=== PATIENT | male | born 1950 | race Caucasian/White ===

== ENCOUNTER 2017-07-27 11:41 | Inpatient (IN) | payer MEDICARE ==
[2017-07-27] MEDS ORDERED: DILTIAZEM 125 MG in SODIUM CHLORIDE 0.9% 100 ML IV STA (12:12)
[2017-07-27] MEDS ORDERED: SODIUM CHLORIDE 0.9% 1,000 ML IV STA (12:12)
[2017-07-27] MEDS ORDERED: ASPIRIN 81 MG PO STA (12:12)
[2017-07-27 12:27] LABS: Basophils % (A) 1 %; Eosinophils # (A) 0.2 k/uL (0-0.7); Eosinophils % (A) 2 %; HCT 45.7 % (39.0-53.0); HGB 15.1 gm/dL (13.0-17.5); Lymphocytes # (A) 1.5 k/uL (1.0-4.8); Lymphocytes % (A) 26 %; MCH 31.7 pg (25.0-35.0); MCV 96.1 fL (80.0-100.0); Mean Platelet Volume 7.6; Monocytes # (A) 0.5 k/uL (0-1.0); Monocytes % (A) 8 %; Neutrophils # (A) 3.6 k/uL (1.3-7.7); Neutrophils % (A) 60 %; Platelet Count 227 k/uL (150-450); RBC 4.76 m/uL (4.30-5.90); RDW 14.1 % (11.5-15.5)
[2017-07-27 12:41] LABS: ALT 39 U/L (21-72); AST 33 U/L (17-59); Albumin 4.1 g/dL (3.5-5.0); Alkaline Phosphatase 57 U/L (38-126); Anion Gap 9 mmol/L; Blood Urea Nitrogen 27 mg/dL (9-20); Calcium 9.5 mg/dL (8.4-10.2); Carbon Dioxide 25 mmol/L (22-30); Chloride 105 mmol/L (98-107); Glucose 114 mg/dL (74-99); Magnesium 2.1 mg/dL (1.6-2.3); Potassium 5.1 mmol/L (3.5-5.1); Sodium 139 mmol/L (137-145); Total Bilirubin 1.4 mg/dL (0.2-1.3)
[2017-07-27 12:48] LABS: Creatine Kinase 179 U/L (55-170)
[2017-07-27 13:01] LABS: Creatine Kinase MB 1.6 ng/mL (0.0-2.4); Troponin I <0.012 ng/mL (0.000-0.034)
--- NOTE | 2017-07-27 13:01 | XR ---
EXAMINATION TYPE: XR chest 1V portable DATE OF EXAM: 07/27/2017 COMPARISON: NONE HISTORY: Dysrhythmia TECHNIQUE: Single frontal view of the chest is obtained. FINDINGS: There is no focal air space opacity, pleural effusion, or pneumothorax seen. The cardiac silhouette size is within normal limits. The osseous structures are intact. Degenerative change of the spine. Shoulders. No overt failure. Atherosclerotic change aorta. IMPRESSION: No acute process.
[2017-07-27 13:17] LABS: Partial Thromboplastin Time 24.6 sec (22.0-30.0); Prothrombin Time 10.3 sec (9.0-12.0)
[2017-07-27] MEDS ORDERED: HEPARIN SODIUM,PORCINE 5,000 UNIT/ML 1 ML VIAL IV PRN (13:49)
[2017-07-27] MEDS ORDERED: HEPARIN SODIUM,PORCINE 5,000 UNIT/ML 1 ML VIAL IV ONE (13:49)
--- NOTE | 2017-07-27 13:53 | ED ---
Arrhythmia/Palpitations HPI - General Chief Complaint: Arrhythmia/Palpitations Stated Complaint: Abnormal EKG-sent by Time Seen by Provider: 07/27/17 12:12 Source: patient Mode of arrival: ambulatory Limitations: no limitations - History of Present Illness Initial Comments: This 67-year-old white male presents with an elevated heart rate. He apparently went to see his primary care physician for an infection in his right index finger. They noted that his heart rate was significantly elevated at approximately 160 and sent him to the ER for further evaluation. He states that he has been feeling fine otherwise. He does not have any palpitations, shortness of breath, or chest pain. He denies any previous history of cardiac arrhythmias. He's never had any known problems with his heart, coronary artery disease or myocardial infarction. No other complaints or modifying factors. - Related Data Home Medications Medication Instructions Recorded Confirmed Multivitamins, Thera [Multivitamin] 1 tab PO DAILY 03/14/16 07/27/17 Cholecalciferol [Vitamin D3] 1,000 unit PO DAILY 07/27/17 07/27/17 Lisinopril [Zestril] 20 mg PO DAILY 07/27/17 07/27/17 Allergies Allergy/AdvReac Type Severity Reaction Status Date / Time No Known Allergies Allergy Verified 07/27/17 11:49 Review of Systems ROS Statement: Those systems with pertinent positive or pertinent negative responses have been documented in the HPI. ROS Other: All systems not noted in ROS Statement are negative. Past Medical History Past Medical History: Hypertension, Skin Disorder, Sleep Apnea/CPAP/BIPAP Additional Past Medical History / Comment(s): no cpap used, rosacea, low vit d History of Any Multi-Drug Resistant Organisms: None Reported Additional Past Surgical History / Comment(s): pilonidal cyst, Past Anesthesia/Blood Transfusion Reactions: No Reported Reaction Past Psychological History: No Psychological Hx Reported Smoking Status: Current some day smoker Past Alcohol Use History: None Reported - Past Family History Mother Family Medical History: Cancer General Exam - General Exam Comments Initial Comments: GENERAL: The patient is well nourished and well hydrated. VITAL SIGNS: Heart rate, blood pressure, respiratory rate reviewed as recorded in nurse's notes. EYES: Pupils are round and reactive. Extraocular movements are intact. No conjunctival / lid redness or swelling. ENT: No external evidence of injury, swelling, or ecchymosis. Airway is patent. Throat is clear. NECK: Nontender. No swelling or evidence of injury. No subcutaneous emphysema. Trachea is midline. No thyroid mass. HEART: There is tachycardia noted which is fairly regular. Good peripheral pulses. LUNGS/CHEST: Breath sounds clear and equal bilaterally. No rales, rhonchi, or wheezes. No ecchymosis, subcutaneous emphysema, or tenderness. ABDOMEN: Abdomen soft without tenderness. No palpable masses or organomegaly. No peritoneal signs. No abdominal wall swelling or ecchymosis. EXTREMITIES: No extremity tenderness. Normal muscle tone and function. No thoracolumbar tenderness. The patient does have a finger splint noted to his right index finger. NEUROLOGIC: Sensation is grossly intact. Cranial nerve exam reveals face is symmetrical, tongue is midline, speech is clear. SKIN: No abrasions or ecchymosis is noted. No induration or masses noted. There is a mildly edema this rash to bilateral lower extremities which is chronic in nature. PSYCHIATRIC: Alert and oriented. Appropriate behavior and judgment. Limitations: no limitations Course Vital Signs 07/27/17 07/27/17 07/27/17 11:44 12:12 12:56 Temperature 97.3 F L Pulse Rate 162 H 135 H Pulse Rate [ 156 H Campaign Coordinator ] Respiratory 18 20 Rate Blood Pressure 136/77 135/82 O2 Sat by Pulse 100 99 Oximetry 07/27/17 13:47 Temperature Pulse Rate 140 H Pulse Rate [ Campaign Coordinator ] Respiratory 20 Rate Blood Pressure 131/73 O2 Sat by Pulse 98 Oximetry Medical Decision Making - Medical Decision Making The patient was seen and examined. All diagnostics were reviewed. The EKG shows evidence of atrial flutter at a rate of 160. There is some nonspecific ST -T wave changes noted in the inferolateral leads. The patient has an incomplete right bundle-branch block. The CT interval is 112, QRS duration is 104, and the QTc interval is 382. He is started on a Cardizem drip and his heart rate comes down to approximately 140 at 10 mg per hour. He also is given a 10 mg Cardizem bolus. He later started on some heparin. We'll watch him on the glassware finisher it appears that he sometimes will go into a 3-1 atrial flutter. The laboratory is reviewed and is unremarkable. It is felt as though he benefit from admission to the hospital for further treatment and cardiology consult. Case will be discussed with internal medicine in the near future. - Lab Data Result diagrams: 07/27/17 12:09 07/27/17 12:09 Lab Results 07/27/17 07/27/17 07/27/17 Range/Units 12:09 12:09 12:09 WBC 6.0 (3.8-10.6) k/uL RBC 4.76 (4.30-5.90) m/uL Hgb 15.1 (13.0-17.5) gm/dL Hct 45.7 (39.0-53.0) % MCV 96.1 (80.0-100.0) fL MCH 31.7 (25.0-35.0) pg MCHC 33.0 (31.0-37.0) g/dL RDW 14.1 (11.5-15.5) % Plt Count 227 (150-450) k/uL Neutrophils % 60 % Lymphocytes % 26 % Monocytes % 8 % Eosinophils % 2 % Basophils % 1 % Neutrophils # 3.6 (1.3-7.7) k/uL Lymphocytes # 1.5 (1.0-4.8) k/uL Monocytes # 0.5 (0-1.0) k/uL Eosinophils # 0.2 (0-0.7) k/uL Basophils # 0.0 (0-0.2) k/uL PT (9.0-12.0) sec INR (<1.2) APTT (22.0-30.0) sec Sodium 139 (137-145) mmol/L Potassium 5.1 (3.5-5.1) mmol/L Chloride 105 (98-107) mmol/L Carbon Dioxide 25 (22-30) mmol/L Anion Gap 9 mmol/L BUN 27 H (9-20) mg/dL Creatinine 1.02 (0.66-1.25) mg/dL Est GFR (MDRD) Af Amer >60 (>60 ml/min/1.73 sqM) Est GFR (MDRD) Non-Af >60 (>60 ml/min/1.73 sqM) Glucose 114 H (74-99) mg/dL Calcium 9.5 (8.4-10.2) mg/dL Magnesium 2.1 (1.6-2.3) mg/dL Total Bilirubin 1.4 H (0.2-1.3) mg/dL AST 33 (17-59) U/L ALT 39 (21-72) U/L Alkaline Phosphatase 57 (38-126) U/L Total Creatine Kinase 179 H (55-170) U/L CK-MB (CK-2) 1.6 (0.0-2.4) ng/mL CK-MB (CK-2) Rel Index 0.9 Troponin I <0.012 (0.000-0.034) ng/mL Total Protein 7.0 (6.3-8.2) g/dL Albumin 4.1 (3.5-5.0) g/dL TSH 1.520 (0.465-4.680) mIU/L 07/27/17 Range/Units 12:09 WBC (3.8-10.6) k/uL RBC (4.30-5.90) m/uL Hgb (13.0-17.5) gm/dL Hct (39.0-53.0) % MCV (80.0-100.0) fL MCH (25.0-35.0) pg MCHC (31.0-37.0) g/dL RDW (11.5-15.5) % Plt Count (150-450) k/uL Neutrophils % % Lymphocytes % % Monocytes % % Eosinophils % % Basophils % % Neutrophils # (1.3-7.7) k/uL Lymphocytes # (1.0-4.8) k/uL Monocytes # (0-1.0) k/uL Eosinophils # (0-0.7) k/uL Basophils # (0-0.2) k/uL PT 10.3 (9.0-12.0) sec INR 1.0 (<1.2) APTT 24.6 (22.0-30.0) sec Sodium (137-145) mmol/L Potassium (3.5-5.1) mmol/L Chloride (98-107) mmol/L Carbon Dioxide (22-30) mmol/L Anion Gap mmol/L BUN (9-20) mg/dL Creatinine (0.66-1.25) mg/dL Est GFR (MDRD) Af Amer (>60 ml/min/1.73 sqM) Est GFR (MDRD) Non-Af (>60 ml/min/1.73 sqM) Glucose (74-99) mg/dL Calcium (8.4-10.2) mg/dL Magnesium (1.6-2.3) mg/dL Total Bilirubin (0.2-1.3) mg/dL AST (17-59) U/L ALT (21-72) U/L Alkaline Phosphatase (38-126) U/L Total Creatine Kinase (55-170) U/L CK-MB (CK-2) (0.0-2.4) ng/mL CK-MB (CK-2) Rel Index Troponin I (0.000-0.034) ng/mL Total Protein (6.3-8.2) g/dL Albumin (3.5-5.0) g/dL TSH (0.465-4.680) mIU/L Disposition Clinical Impression: Atrial flutter Disposition: ADMITTED IP TO THIS [facility] Condition: Fair Time of Disposition: 13:52 Decision Date: 07/27/17 Decision Time: 13:52
[2017-07-27] MEDS ORDERED: HEPARIN SOD,PORK IN 0.45% NACL 25,000 UNIT in 0.45% NACL 1 500ML.BAG IV SCH (14:00)
--- NOTE | 2017-07-27 18:33 | HP ---
HISTORY AND PHYSICAL DATE OF ADMISSION: 07/27/17 PRESENT COMPLAINT: Heart racing. HISTORY OF PRESENTING COMPLAINT: This is a very pleasant 67-year-old patient Dr. Zurita. Chronic stable medical conditions include hypertension, BPH, rosacea, and arthritis in right hip. The patient rather active and had gone cross-country skiing yesterday. The patient had a cut on the right index finger and had gone to see Dr. Zurita. Did a blood pressure check. His blood pressure is felt to be a bit off and subsequently discovered the heart rate to be up. The patient was sent down to the ER. The patient is found to be in atrial flutter with rapid ventricular rate up to 160s. Put on IV Cardizem, IV heparin drip. The patient denies any chest pain or palpitation. Denies any dizziness, lightheadedness. The patient does drink about 12 beers a week. Also smokes occasional cigars. Has been also drinking a power drink and also taking caffeine. Denies any prior cardiac history. REVIEW OF SYSTEMS: CONSTITUTIONAL: None. HEENT: None. RESPIRATORY: None. CARDIOVASCULAR: None. GASTROINTESTINAL: None. GENITOURINARY: Some BPH symptoms. DERMATOLOGICAL, HEMATOLOGIC, LYMPHATIC: None. PSYCHIATRY: None. NEUROLOGICAL: None. MUSCULOSKELETAL: Some pain in the right hip. PAST MEDICAL HISTORY: Hypertension, BPH, obstructive sleep apnea got greatly improved after weight loss, rosacea, right hip osteoarthritis. PAST SURGICAL HISTORY: Pilonidal cyst, polypectomy. SOCIAL HISTORY: Smokes cigars rarely. Drinks about 12 beers a week, drinking a power drink. 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 FAMILY HISTORY: Breast cancer. HOME MEDICATIONS: Multivitamin 1 tab p.o. daily, Zestril 20 mg p.o. daily, vitamin D3 1000 units p.o. daily. ALLERGIES: None. PHYSICAL EXAMINATION: Vital signs on presentation: Temperature 97.3, pulse 162, respiration 18, blood pressure 136/77, pulse ox 100% on room air. GENERAL APPEARANCE: Well built, BMI 42. EYES: Pupils equal. Conjunctivae normal.. HEENT: Oral cavity normal. NECK: JVD not raised. Mass not palpable. RESPIRATORY: Effort, lungs are clear. CARDIOVASCULAR: Heart sounds irregular. No edema. ABDOMEN: Soft, nontender. Liver and spleen not palpable. LYMPHATIC: No lymph nodes palpable in neck or axillae. PSYCHIATRY: Alert and oriented x3. Mood and affect normal. NEUROLOGICAL: Pupils equal. Cranial nerves grossly intact. Power and sensation grossly intact. MUSCULOSKELETAL: Right index finger in a sling and the patient has got rosacea changes on the skin. INVESTIGATIONS: White count 6, hemoglobin 15.1, potassium 5.1. TSH normal. Troponin negative. The EKG shows atrial flutter with rapid ventricular rate. ASSESSMENT: 1. New diagnosis of atrial flutter, rapid ventricular rate found during routine examination probably this is long-standing. 2. IV heparin monitoring. 3. Morbid obesity, BMI 42.0. 4. Essential hypertension. 5. Benign prostatic hypertrophy. 6. Chronic rosacea. 7. Right hip osteoarthritis. PLAN: Patient will be put on IV Cardizem drip and IV heparin. We will order a 2-D echocardiogram. Will discontinue patient's Zestril for right now. The patient is educated to cut back on the caffeine intake. Told to stop the power supplement that he drinks. MMODL / IJN: [id number] /
[2017-07-27 20:21] LABS: Creatine Kinase 118 U/L (55-170)
[2017-07-27 20:32] LABS: Troponin I <0.012 ng/mL (0.000-0.034)
[2017-07-28 00:46] LABS: Creatine Kinase 93 U/L (55-170)
[2017-07-28 00:59] LABS: Creatine Kinase MB 0.8 ng/mL (0.0-2.4); Troponin I <0.012 ng/mL (0.000-0.034)
[2017-07-28 06:41] LABS: Basophils % (A) 0 %; Eosinophils # (A) 0.2 k/uL (0-0.7); Eosinophils % (A) 5 %; HCT 40.8 % (39.0-53.0); HGB 13.2 gm/dL (13.0-17.5); Lymphocytes # (A) 1.6 k/uL (1.0-4.8); Lymphocytes % (A) 32 %; MCH 31.1 pg (25.0-35.0); MCHC 32.2 g/dL (31.0-37.0); MCV 96.4 fL (80.0-100.0); Mean Platelet Volume 7.7; Monocytes # (A) 0.4 k/uL (0-1.0); Monocytes % (A) 8 %; Neutrophils # (A) 2.6 k/uL (1.3-7.7); Neutrophils % (A) 53 %; Platelet Count 210 k/uL (150-450); RBC 4.24 m/uL (4.30-5.90); RDW 14.2 % (11.5-15.5); WBC 4.9 k/uL (3.8-10.6)
[2017-07-28 08:12] LABS: Cholesterol 204 mg/dL (<200); HDL Cholesterol 51 mg/dL (40-60); LDL Cholesterol,Calculated 132 mg/dL (0-99); Triglycerides 104 mg/dL (<150)
[2017-07-28] MEDS ORDERED: ASPIRIN 325 MG TAB PO SCH (09:00)
[2017-07-28] MEDS ORDERED: CHOLECALCIFEROL 1,000 UNIT TAB PO SCH (09:00)
[2017-07-28] MEDS ORDERED: LISINOPRIL 20 MG TAB PO SCH (09:00)
[2017-07-28] MEDS ORDERED: METOPROLOL TARTRATE 25 MG TAB PO SCH (09:00)
--- NOTE | 2017-07-28 09:17 | CONS ---
CONSULTATION Mr. Poe is a 67-year-old male who was admitted with tachycardia. Yesterday, he was seen in his primary care physician's office for a cut on his finger as well as a rash on his leg and was noted to be tachycardiac and in the emergency room was diagnosed with atrial flutter with rapid ventricular response. He has since converted to sinus mechanism. The patient is unaware of the dysrhythmia. He does not feel any different, his breathing has been stable. He has no dizziness, palpitation, or syncope. No clear PND, orthopnea, or peripheral edema. He is quite active physically without associated symptoms. He has no prior documented history of cardiac disease and no cardiac workup. His coronary risk factors are remarkable for hypertension. He is nondiabetic. He smokes rare cigars. No documented hyperlipidemia. His medications at home include lisinopril 20 mg daily, vitamin D and multivitamin. REVIEW OF SYSTEMS: RESPIRATORY SYSTEM: He has no recent wheezing. No cough. No history of obstructive lung disease. GI SYSTEM: No recent GI bleeding. No peptic ulcer disease. SYSTEM: No dysuria or hematuria. NERVOUS SYSTEM: No history of stroke or seizure. PHYSICAL EXAMINATION: He is a 67-year-old male, alert, oriented, in no apparent distress. Blood pressure 137/70 with the heart rate in the 70s. HEAD: Normocephalic. EYES: Sclerae nonicteric. NECK :good upstroke. No bruits. No jugular venous distention. LUNGS: Clear to auscultation. HEART: Regular rate and rhythm. Rhythm S1, S2. No S3. No S4. No murmur or rub. ABDOMEN: Soft, nontender. Positive bowel sounds. No organomegaly. EXTREMITIES: No edema. Intact distal pulses. LAB DATA: Lab data revealed a BUN and creatinine of 77, 1.02, potassium 5.1. Hemoglobin 13.2. Cholesterol 204, LDL of 132. TSH 1.520. EKG on presentation revealed atrial flutter with 2:1 conduction, rate of [address]-T wave changes. His EKG today revealed sinus bradycardia, rate of 52 with no acute changes. IMPRESSION: 1. Paroxysmal atrial flutter of unknown duration. Patient is asymptomatic to the arrhythmia. 2. History of hypertension. RECOMMENDATION: I will stop his IV heparin and start on Xarelto because of the history of hypertension and the age. I will also review the results of his echocardiogram. I will add to his regimen, metoprolol tartrate 25 mg twice a day. If he is stable, he should be able to be discharged home today and followed as an outpatient to see if he has any further episodes of atrial flutter. Thank you for this consult. We will follow with you. ARMANDO / HUSAM: [id number] /
[2017-07-28] MEDS ORDERED: MULTIVITAMINS, THERA 1 EACH TAB PO SCH (12:00)
--- NOTE | 2017-07-28 13:35 | DS ---
DISCHARGE SUMMARY DATE OF ADMISSION: 07/27/2017. DATE OF DISCHARGE: 07/28/2017 FINAL DIAGNOSES: 1. Paroxysmal atrial flutter fibrillation. rapid ventricular rate, now back into sinus rhythm. 2. IV heparin monitoring. 3. Morbid obesity, body mass index of 42. 4. Essential hypertension. 5. Benign prostatic hypertrophy. 6. Chronic rosacea. 7. Right hip osteoarthritis. HOSPITAL COURSE: This patient is rather active, but does smoke occasional cigars, about 12 beers a week, does takes an energy drink. Recently increased intake on his caffeine intake. Found in atrial flutter with rapid ventricular rate. The patient is put on initially Cardizem, that reverted back to sinus rhythm. Patient is put on Xarelto. The 2D echo results were pending. Up and about, no further symptoms. Put on Xarelto by Dr. Oshea for anticoagulation. Patient is advised to stop all energy drinks. Also cut back on his caffeine intake. PHYSICAL EXAM: Lungs are clear. CARDIOVASCULAR: First and second sounds are normal. Troponins were negative, LDL 132. TSH normal. DISCHARGE MEDICATIONS: 1. Multivitamin 1 tab p.o. daily. 2. Vitamin D3 one thousand units p.o. daily. 3. Lopressor 25 p.o. b.i.d. 4. Xarelto 20 mg with supper. Follow up with Dr. Oshea in 1 week; Dr. Zurita in 1 week. MMTALONL / TATAN: [id number] /
[2017-07-28 15:10] VITALS: BP 133/93; PULSE 70; RESP 16; TEMP 96.6
[2017-07-28] MEDS ORDERED: RIVAROXABAN 10 MG TAB PO SCH (17:30)
--- NOTE | 2017-07-31 08:46 | ECHOF ---
Referral Reason:dysrhythmia MEASUREMENTS -------- HEIGHT: 165.1 cm WEIGHT: 122.5 kg BP: RVIDd: 2.5 cm (< 3.3) IVSd: 1.3 cm (0.6 - 1.1) LVIDd: 4.1 cm (3.9 - 5.3) LVPWd: 1.5 cm (0.6 - 1.1) IVSs: 1.6 cm LVIDs: 3.4 cm LVPWs: 1.6 cm LA Diam: 3.5 cm (2.7 - 3.8) Ao Diam: 3.4 cm (2.0 - 3.7) AV Cusp: 2.0 cm (1.5 - 2.6) LA Diam: 3.7 cm (2.7 - 3.8) EPSS: 0.6 cm MV E Terence: 0.29 m/s MV DecT: 140 ms MV A Terence: 0.48 m/s MV E/A Ratio: 0.59 MV EF SLOPE: 77.64 mm/s (70 - 150) MV EXCURSION: 1.18 cm (> 18.000) FINDINGS -------- Sinus rhythm. Morbid Obesity This was a techncally difficult study with suboptimal views, , Definity utilized for enhancement of images. The left ventricular size is normal. There is mild concentric left ventricular hypertrophy. Overa ll left ventricular systolic function is low-normal with, an EF between 50 - 55 %. The right ventricle is normal in size. The right atrial size is normal. 1.5MG OF DEFINITY UTLIZED: 2 OR MORE WALL SEGMENTS NOT VISUALIZED. The aortic valve is trileaflet, and appears structurally normal. No aortic stenosis or regurgitation. Mild mitral regurgitation is present. Mild tricuspid regurgitation present. There is no evidence of pulmonary hypertension. The right v entricular systolic pressure, as measured by Doppler, is {RVSP}. The pulmonic valve was not well visualized. CONCLUSIONS -------- 1. Sinus rhythm. 2. Morbid Obesity 3. This was a techncally difficult study with suboptimal views, , Definity utilized for enhancement o f images. 4. The left ventricular size is normal. 5. There is mild concentric left ventricular hypertrophy. 6. Overall left ventricular systolic function is low-normal with, an EF between 50 - 55 %. 7. 1.5MG OF DEFINITY UTLIZED: 2 OR MORE WALL SEGMENTS NOT VISUALIZED. 8. The aortic valve is trileaflet, and appears structurally normal. No aortic stenosis or regurgitati on. 9. Mild mitral regurgitation is present. 10. Mild tricuspid regurgitation present. 11. There is no evidence of pulmonary hypertension. 12. The pulmonic valve was not well visualized. DEDICATED DRIVER: Sammi Gilliam RDCS
== END 2017-07-28 14:57 | disposition home or self-care (01) | DRG 309 ==
LOC: EC 11:41 → 6SEL 13:53
PROVIDERS: ADMIT Hospitalist; ATTEND Hospitalist
DX: I48.0 Paroxysmal atrial fibrillation (principal); Z68.41 Body mass index [BMI] 40.0-44.9, adult; E66.01 Morbid (severe) obesity due to excess calories; I10 Essential (primary) hypertension; N40.0 Benign prostatic hyperplasia without lower urinary tract symptoms; L71.9 Rosacea, unspecified; M16.11 Unilateral primary osteoarthritis, right hip; I45.10 Unspecified right bundle-branch block; G47.33 Obstructive sleep apnea (adult) (pediatric); F17.290 Nicotine dependence, other tobacco product, uncomplicated; Z79.899 Other long term (current) drug therapy; Z80.3 Family history of malignant neoplasm of breast; Z86.010 Personal history of colon polyps
CPT/HCPCS: 36415; 71045; 80053; 80061; 82550; 82553; 83735; 84443; 84484; 85025; 85610; 85730; 93005; 93306; 94760; 96365; 96366; 96376; 99285

== ENCOUNTER → 2019-02-20 | Day surgery (SDC) | payer MEDICARE ==
[2019-02-15 14:00] VITALS: BMI 40.3
[~2019-02-20] MED LIST: LACTATED RINGERS 1,000 ML IV SCH; LIDOCAINE 1% 20 ML VIAL (10MG/ML) FOR IV START INTRADERMA ONE; LIDOCAINE 1% 20 ML VIAL (10MG/ML) FOR IV START INTRADERMA PRN; LIDOCAINE-D5W PMX 2G/250ML 2,000 MG in DEXTROSE/WATER 1 250ML.BAG IV ONE; PROPOFOL 10 MG/ML 20 ML VIAL IV ONE
[2019-02-20 10:27] VITALS: PULSE 75; TEMP 97.6
--- NOTE | 2019-02-20 11:13 | P.PCN ---
Date of Procedure: 02/20/19 Procedure(s) Performed: BRIEF HISTORY: Patient is a 68-year-old pleasant white male, scheduled for an elective colonoscopy as a part of evaluation of prior history of colon polyps and Hemoccult-positive stool. Last colonoscopy was 3 years ago and was noted to have an adenoma. PROCEDURE PERFORMED: Colonoscopy. PREOPERATIVE DIAGNOSIS: . history of colon polyps and Hemoccult-positive stool IV sedation per Anesthesia. PROCEDURE: After informed consent was obtained, the patient, was brought into the endoscopy unit. IV sedation was administered by Anesthesia under continuous monitoring. Digital rectal examination was normal. Initially the Olympus CF-160 flexible video colonoscope was then inserted in the rectum, gradually advanced into the cecum without any difficulty. Careful examination was performed as the scope was gradually being withdrawn. Ileocecal valve and the appendiceal orifice were visualized and appeared normal. Prep was excellent. Mucosa of the cecum, ascending colon, transverse colon, descending colon, sigmoid colon, and rectum appeared normal. Retroflexion was performed in the rectum and small internal hemorrhoids were seen. The patient tolerated the procedure well. IMPRESSION: Normal-appearing colon from rectum to cecum no evidence of colitis or colorectal neoplasia Small internal hemorrhoids. RECOMMENDATIONS: Findings of this examination were discussed with the patient as well as his family. He was advised to have a repeat surveillance colonoscopy in 5 years from now because of the prior history of colon polyps.
[2019-02-20 11:43] VITALS: BP 95/62; RESP 16
== END ==
LOC: ORWHC2ENDO 09:40
PROVIDERS: ATTEND Internal Medicine Gastroenterology
DX: K64.8 Other hemorrhoids (principal); I10 Essential (primary) hypertension; E66.01 Morbid (severe) obesity due to excess calories; Z68.41 Body mass index [BMI] 40.0-44.9, adult; N40.0 Benign prostatic hyperplasia without lower urinary tract symptoms; I48.92 Unspecified atrial flutter; Z79.01 Long term (current) use of anticoagulants; Z79.899 Other long term (current) drug therapy
CPT/HCPCS: 45378; J2704; J2001

== ENCOUNTER → 2019-05-16 | Outpatient (CLI) | payer MEDICARE ==
[2019-05-16 23:36] LABS: African American GFR (CKD) 89.9 (60.0-200.0); Albumin 4.5 g/dL (3.80-4.90); Albumin/Globulin Ratio 1.96 (1.60-3.17); Anion Gap 9.6 mmol/L (4.00-12.00); Calcium 9.3 mg/dL (8.7-10.3); Carbon Dioxide 27.4 mmol/L (21.6-31.8); Globulin 2.3 g/dL (1.6-3.3); Potassium 4.9 mmol/L (3.5-5.5); Total Bilirubin 1.1 mg/dL (0.2-1.2); Total Protein 6.8 g/dL (6.2-8.2)
== END | disposition home or self-care (01) ==
LOC: LABWHC1 15:25
PROVIDERS: ATTEND Internal Medicine Interventional Cardiology
DX: I48.11 Longstanding persistent atrial fibrillation (principal)
CPT/HCPCS: 36415; 80053; 84443

== ENCOUNTER → 2019-11-25 | Outpatient (CLI) | payer MEDICARE ==
[2019-11-25 12:16] LABS: HCT 50.3 % (39.0-53.0); MCH 31.9 pg (25.0-35.0); MCHC 31.9 g/dL (31.0-37.0); Mean Platelet Volume 7.5; Platelet Count 214 k/uL (150-450); RBC 5.03 m/uL (4.30-5.90); RDW 13.6 % (11.5-15.5); WBC 7.6 k/uL (3.8-10.6)
[2019-11-25 18:52] LABS: African American GFR (CKD) 89.2 (60.0-200.0); Anion Gap 7.7 mmol/L (4.00-12.00); Carbon Dioxide 29.3 mmol/L (21.6-31.8)
== END | disposition home or self-care (01) ==
LOC: LABWHC1 08:40
PROVIDERS: ATTEND Internal Medicine Interventional Cardiology
DX: Z01.818 Encounter for other preprocedural examination (principal); I48.3 Typical atrial flutter; Z11.59 Encounter for screening for other viral diseases
CPT/HCPCS: 36415; 80051; 82565; 84520; 85027; 87635

== ENCOUNTER → 2019-11-27 | Day surgery (SDC) | payer MEDICARE ==
[2019-11-26 11:22] VITALS: BMI 42.7
[~2019-11-27] MED LIST changes: +ATORVASTATIN 10 MG TAB PO SCH; +BENZOCAINE SPRAY 1 CAN MUCOUS MEM ONE; +BENZOCAINE SPRAY 1 CAN TOPICAL PRN; +FLECAINIDE 50 MG TAB PO SCH; +LIDOCAINE 1% (10MG/ML) FOR IV START INTRADERMA PRN; -LIDOCAINE 1% 20 ML VIAL (10MG/ML) FOR IV START INTRADERMA ONE; -LIDOCAINE 1% 20 ML VIAL (10MG/ML) FOR IV START INTRADERMA PRN; +LIDOCAINE 1% INJ 10MG/ML (20 ML MDV) ONE; -LIDOCAINE-D5W PMX 2G/250ML 2,000 MG in DEXTROSE/WATER 1 250ML.BAG IV ONE; +METOPROLOL TARTRATE 25 MG TAB PO SCH; +MIDAZOLAM 2 MG/2 ML VIAL IV ONE; +MULTIVITAMINS, THERA 1 EACH TAB PO SCH; +RIVAROXABAN 20 MG TAB PO SCH; +SODIUM CHLORIDE 0.9% 1,000 ML IV ONE; +SODIUM CHLORIDE 0.9% 1,000 ML IV SCH; +SODIUM CHLORIDE 0.9% 500 ML 500 ML IV ONE; +amLODIPine 5 MG TAB PO SCH; +fentaNYL (PF) 50 MCG/ML 2 ML AMP IVP ONE
[2019-11-27 06:53] VITALS: TEMP 97.5
[2019-11-27 08:13] VITALS: RESP 18
--- NOTE | 2019-11-27 09:16 | ECHOT ---
TRANSESOPHAGEAL ECHOCARDIOGRAM INDICATION: Evaluation of left atrial appendage. PROCEDURE: After explaining the procedure to the patient, its risks and the complications, his blood pressure, heart rate, O2 saturation was monitored. The throat was sprayed with Cetacaine. Sedation was obtained with the Anesthesia Department. The probe was introduced into the esophagus without difficulty. Images were obtained. Following that, the probe was removed. There was no immediate complication. FINDINGS: Left atrial size is dilated. Left atrial appendage is normal. Left ventricular size is normal. There is evidence of mild global hypokinesis, estimated ejection fraction 45% to 50%. The aortic valve, mitral valve and tricuspid valve are normal. Descending thoracic aorta appears to be normal. Contrast bubble study revealed no evidence of shunting across the interatrial septum. There was no pericardial effusion. Doppler pulse wave and color Doppler obtained revealed mild mitral and trace tricuspid regurgitation. There was no shunting by color Doppler study. CONCLUSION: 1. Dilated left atrium with normal appearance left atrial appendage. 2. Normal left ventricular size with mild global hypokinesis. 3. Mild mitral regurgitation. 4. Normal appearance of the descending thoracic aorta. 5. No evidence of shunting. MMODL / IJN: [id number] /
--- NOTE | 2019-11-27 09:16 | CE ---
CARDIAC ELECTROPHYSIOLOGY REPORT CARDIOVERSION PROCEDURE NOTE: INDICATION: Atypical atrial flutter. PROCEDURE: After explaining the procedure to the patient, its risks and complication and obtaining sedated state by the Anesthesia Department performing transesophageal echocardiogram, a synchronized biphasic cardioversion using 200, 250 and subsequently 360 joules was successful in restoring normal sinus rhythm. There was no immediate complication. ARMANDO / TATAN: [id number] /
[2019-11-27 09:20] VITALS: BP 112/81; PULSE 75
== END | disposition home or self-care (01) ==
LOC: CATHCVL 06:22
PROVIDERS: ATTEND Internal Medicine Interventional Cardiology
DX: I34.0 Nonrheumatic mitral (valve) insufficiency (principal); I48.4 Atypical atrial flutter; I10 Essential (primary) hypertension; G47.33 Obstructive sleep apnea (adult) (pediatric); F41.9 Anxiety disorder, unspecified; F32.9 Major depressive disorder, single episode, unspecified; E78.2 Mixed hyperlipidemia; Z79.01 Long term (current) use of anticoagulants; Z79.899 Other long term (current) drug therapy; Z87.01 Personal history of pneumonia (recurrent); Z99.89 Dependence on other enabling machines and devices; Z82.49 Family history of ischemic heart disease and other diseases of the circulatory system
CPT/HCPCS: 93312; 93320; 93325; 92960; J2001; J2704

== ENCOUNTER → 2020-10-14 | Outpatient (CLI) | payer MEDICARE ==
[2020-10-14 08:52] LABS: HCT 43.8 % (39.0-53.0); MCH 32.8 pg (25.0-35.0); MCHC 34.3 g/dL (31.0-37.0); MCV 95.8 fL (80.0-100.0); Platelet Count 220 k/uL (150-450); RBC 4.57 m/uL (4.30-5.90); RDW 12.7 % (11.5-15.5); WBC 5.8 k/uL (3.8-10.6)
[2020-10-14 09:11] LABS: African American GFR (CKD) >90 (>60 ml/min/1.73 sqM); Anion Gap 6 mmol/L; Blood Urea Nitrogen 22 mg/dL (9-20); Carbon Dioxide 28 mmol/L (22-30); Chloride 104 mmol/L (98-107); Non-African American GFR(CKD) 90 (>60 ml/min/1.73 sqM); Potassium 4.2 mmol/L (3.5-5.1); Sodium 138 mmol/L (137-145)
== END | disposition home or self-care (01) ==
LOC: LABPAT 08:07
PROVIDERS: ATTEND Internal Medicine Clinical Cardiac Electrophysiology
DX: Z01.818 Encounter for other preprocedural examination (principal); I48.19 Other persistent atrial fibrillation
CPT/HCPCS: 36415; 80051; 82565; 84520; 85027

== ENCOUNTER 2020-10-20 10:15 | Day surgery (SDC) | payer MEDICARE ==
[2020-10-13 16:18] VITALS: BMI 41.9
[2020-10-20] MEDS ORDERED: SODIUM CHLORIDE 0.9% 1,000 ML IV ONE (10:27)
[2020-10-20 10:38] LABS: Glucose,Whole Blood 107 mg/dL (75-99)
[2020-10-20] MEDS ORDERED: ePHEDrine SULFATE/0.9% NACL/PF 50 MG/5 ML SYRINGE IV ONE (12:24)
[2020-10-20] MEDS ORDERED: MIDAZOLAM 2 MG/2 ML VIAL ONE (12:24)
[2020-10-20] MEDS ORDERED: SUCCINYLCHOLINE CHLORIDE VIAL 200 MG/10 ML VIAL IV ONE (12:24)
[2020-10-20] MEDS ORDERED: GLYCOPYRROLATE 0.2 MG/ML 2 ML VIAL ONE (12:24)
[2020-10-20] MEDS ORDERED: fentaNYL (PF) 50 MCG/ML 2 ML AMP ONE (12:24)
[2020-10-20] MEDS ORDERED: LIDOCAINE 1% INJ 10MG/ML (20 ML MDV) ONE (12:24)
[2020-10-20] MEDS ORDERED: NEOSTIGMINE 1 MG/ML 10 ML VIAL ONE (12:24)
[2020-10-20] MEDS ORDERED: ROCURONIUM 10 MG/ML (5 ML VIAL) IV ONE (12:24)
[2020-10-20] MEDS ORDERED: PROPOFOL 10 MG/ML 20 ML VIAL IV ONE (12:24)
[2020-10-20] MEDS ORDERED: ISOPROTERENOL 250 MCG/1.25 ML SYR IV ONE (12:24)
[2020-10-20] MEDS ORDERED: PHENYLEPHRINE-0.9% NACL SYG 1,000 MCG/10 ML SYRINGE ONE (12:24)
[2020-10-20] MEDS ORDERED: LIDOCAINE 1% INJ 10MG/ML (20 ML MDV) SQ ONE (13:13)
[2020-10-20] MEDS ORDERED: HEPARIN SODIUM (1,000 UNIT/ML) 1,000 UNIT in SODIUM CHLORIDE 0.9% 1,000 ML IRRIGATION ONE (14:52)
[2020-10-20] MEDS ORDERED: ACETAMINOPHEN TAB 325 MG TAB PO PRN (15:05)
--- NOTE | 2020-10-20 15:23 | P.EPPROC ---
- EP Procedure Note Electrophysiology Procedure Note: Diagnosis Recurrent typical atrial flutter with RVR Procedure formed Successful atrial flutter ablation/diagnostic EP study Non-fluoroscopic approach Procedure details Patient was brought to the EP lab in a fasting state. Written informed consent was obtained prior to the procedure Procedure performed under general anesthesia Venous sheaths were placed in the right femoral vein Catheters were placed in the high right atrium, His bundle area Deondre sinus right ventricle and the right atrial isthmus Intracardiac echocardiography was performed No pericardial effusion noted No left atrial mass noted no left atrial appendage mass noted 3-D anatomical mapping of the give tricuspid isthmus A long sheath, Vizigo along with an irrigated catheter 4 cm isthmus RF ablation was performed Good contact force, adequate power A complete line of block was made This line was tested with differential pacing Bidirectional block was proven Baseline measurements sinus cycle length 933 ms, OK interval 187 ms, QRS 71 ms, QT 373 ms AH 88 ms and HV interval 45 ms Sinus node recovery times at 600 504 100 ms were 1033, 1068 and 104 to. Corresponding corrected to sinus node recovery times were within normal limits AV node Wenckebach block 3:30 milliseconds Isuprel infusion was started AV node Wenckebach block improved to 240 ms AV node ERP 400\less than 200 ms VA Wenckebach block 3:30 milliseconds All catheters were then removed at the end of the procedure. Hemostasis was assured. Patient extubated and transferred to recovery Procedures performed Comprehensive diagnostic EP study CS pacing and recording Intracardiac echo 3-D mapping RF ablation, atrial Programmed stimulation following Isuprel
[2020-10-20] MEDS: SODIUM CHLORIDE 0.9% 1,000 ML IV SCH (17:50)
[2020-10-20] MEDS: METOPROLOL TARTRATE 25 MG TAB PO SCH (20:23)
[2020-10-20] MEDS ORDERED: RIVAROXABAN 20 MG TAB PO SCH (21:00)
[2020-10-20] MEDS ORDERED: amLODIPine 5 MG TAB PO SCH (21:00)
[2020-10-20] MEDS ORDERED: ATORVASTATIN 10 MG TAB PO SCH (21:00)
[2020-10-21] MEDS: SODIUM CHLORIDE 0.9% 1,000 ML IV SCH (02:28)
[2020-10-21] MEDS: METOPROLOL TARTRATE 25 MG TAB PO SCH (08:12)
[2020-10-21 08:30] VITALS: BP 138/92; PULSE 65; RESP 16; TEMP 97.6
--- NOTE | 2020-10-21 15:32 | P.DS ---
Providers Expected date of discharge: 10/21/20 Attending physician: Justyn Galloway Primary care physician: Amelia Youssef MD Hospital Course: This is a 70-year-old male with recurrent typical atrial flutter with RVR. Patient underwent successful atrial flutter ablation with Dr. Galloway yesterday. Patient remains in sinus mechanism this morning. He denies chest pain or pressure. Denies shortness of breath. Groin site clean dry intact with no hemato ma noted. Vital signs are stable. The patient was deemed stable for discharge home today per Dr. Galloway. He is to follow up outpatient in 1-2 weeks. Discharge Diagnosis Recurrent typical atrial flutter with RVR, status post successful atrial flutter ablation Nurse practitioner note has been reviewed by physician. Signing provider agrees with the documented findings, assessment, and plan of care. Plan - Discharge Summary Discharge Rx Participant: No New Discharge Prescriptions: Continue Multivitamins, Thera [Multivitamin (formulary)] 1 tab PO DAILY amLODIPine [Norvasc] 5 mg PO HS Atorvastatin [Lipitor] 10 mg PO HS Rivaroxaban [Xarelto] 20 mg PO HS Metoprolol Tartrate [Lopressor] 25 mg PO BID Cholecalciferol [Vitamin D3 (25 Mcg = 1000 Iu)] 50 mcg PO DAILY Hydrocortisone Cream [Hydrocortisone 2.5% Cream] 1 applic TOPICAL DAILY Discharge Medication List Multivitamins, Thera [Multivitamin (formulary)] 1 tab PO DAILY 11/26/19 [History] Atorvastatin [Lipitor] 10 mg PO HS 11/27/19 [History] Metoprolol Tartrate [Lopressor] 25 mg PO BID 11/27/19 [History] Rivaroxaban [Xarelto] 20 mg PO HS 11/27/19 [History] amLODIPine [Norvasc] 5 mg PO HS 11/27/19 [History] Cholecalciferol [Vitamin D3 (25 Mcg = 1000 Iu)] 50 mcg PO DAILY 10/13/20 [History] Hydrocortisone Cream [Hydrocortisone 2.5% Cream] 1 applic TOPICAL DAILY 10/14/20 [History] Follow up Appointment(s)/Referral(s): Iesha Oshea MD [STAFF PHYSICIAN] - 10/28/20 11:15 am (Follow up in the office with Dr. Oshea for a site check as scheduled for you) Patient Instructions/Handouts: Electrophysiology Study (DC) Activity/Diet/Wound Care/Special Instructions: Post EP study - Ablation instructions 1. Keep access sites dry for 2 days. 2. No heavy lifting or straining for 2 days. 3. Avoid bending the hips repeatedly for 2 days. 4. You may go up and down stairs slowly Call if the following is noted 1. Bleeding, increasing swelling or pain at the access sites. 2. Increasing chest discomfort, especially upon taking a deep breath. 3. Increasing shortness of breath, at rest or with exertion. 4. Undue cough / phlegm 5. Difficulty or pain while swallowing. 6. Pain or change in color in the extremities. 7. Fever, chills, rigors. 8. Increasing headache or neurologic symptoms. 9. Dizziness, fainting, palpitations Continue current medications without any changes Continue Xarelto Discharge Disposition: HOME SELF-CARE
== END 2020-10-21 13:01 | disposition home or self-care (01) ==
LOC: CATHEP 10:15 → 6NMEDSUR 15:00 → CATHEP 10-21 13:01
PROVIDERS: ATTEND Internal Medicine Clinical Cardiac Electrophysiology
DX: I48.3 Typical atrial flutter (principal); I42.8 Other cardiomyopathies; G47.33 Obstructive sleep apnea (adult) (pediatric); E11.9 Type 2 diabetes mellitus without complications; E78.2 Mixed hyperlipidemia; I10 Essential (primary) hypertension; Z79.01 Long term (current) use of anticoagulants; Z79.899 Other long term (current) drug therapy; Z82.49 Family history of ischemic heart disease and other diseases of the circulatory system
CPT/HCPCS: 93623; 93662; 93613; 93653; C1894; C1769 ×2; C1766; C1730; C1759; C1732; J2250; J0330; J2710; J2001; J3010; J1644; J2370; J2704

== ENCOUNTER 2021-08-25 05:55 | Day surgery (SDC) | payer MEDICARE ==
[2021-08-23 14:53] VITALS: BMI 42.3
[~2021-08-25 05:55] MED LIST changes: -ATORVASTATIN 10 MG TAB PO SCH; -BENZOCAINE SPRAY 1 CAN MUCOUS MEM ONE; -BENZOCAINE SPRAY 1 CAN TOPICAL PRN; -FLECAINIDE 50 MG TAB PO SCH; -LACTATED RINGERS 1,000 ML IV SCH; -LIDOCAINE 1% (10MG/ML) FOR IV START INTRADERMA PRN; -LIDOCAINE 1% INJ 10MG/ML (20 ML MDV) ONE; -METOPROLOL TARTRATE 25 MG TAB PO SCH; -MIDAZOLAM 2 MG/2 ML VIAL IV ONE; -MULTIVITAMINS, THERA 1 EACH TAB PO SCH; -PROPOFOL 10 MG/ML 20 ML VIAL IV ONE; -RIVAROXABAN 20 MG TAB PO SCH; -SODIUM CHLORIDE 0.9% 1,000 ML IV ONE; -SODIUM CHLORIDE 0.9% 500 ML 500 ML IV ONE; -amLODIPine 5 MG TAB PO SCH; -fentaNYL (PF) 50 MCG/ML 2 ML AMP IVP ONE
--- NOTE | 2021-08-25 07:28 | P.PN ---
Progress Note - Text Progress Note Date: 08/25/21 The patient presented to undergo MARK guided cardioversion. On presentation he was in sinus mechanism. He denies any chest discomfort, dizziness or palpitations. He will be discharged home today on the same medication and followed as an outpatient.
== END 2021-08-25 07:30 | disposition home or self-care (01) ==
LOC: CATHCVL 05:55
PROVIDERS: ATTEND Internal Medicine Interventional Cardiology
DX: I48.0 Paroxysmal atrial fibrillation (principal); I48.3 Typical atrial flutter; Z53.8 Procedure and treatment not carried out for other reasons; E78.5 Hyperlipidemia, unspecified; I10 Essential (primary) hypertension; I42.8 Other cardiomyopathies; Z20.822 Contact with and (suspected) exposure to COVID-19; E78.2 Mixed hyperlipidemia; Z82.49 Family history of ischemic heart disease and other diseases of the circulatory system; Z79.01 Long term (current) use of anticoagulants; Z79.899 Other long term (current) drug therapy
CPT/HCPCS: 87635

== ENCOUNTER 2025-01-27 09:09 | Day surgery (SDC) | payer MEDICARE ==
[2025-01-23 11:14] VITALS: BMI 41.9
[2025-01-27] MEDS: SODIUM CHLORIDE 0.9% 1,000 ML IV SCH (10:02)
[2025-01-27] MEDS ORDERED: LIDOCAINE 1% INJ 10MG/ML (20 ML MDV) ONE (11:12)
[2025-01-27] MEDS ORDERED: MIDAZOLAM 2 MG/2 ML VIAL ONE (11:12)
[2025-01-27] MEDS ORDERED: SUCCINYLCHOLINE CHLORIDE 200 MG/10 ML VIAL IV ONE (11:12)
[2025-01-27] MEDS ORDERED: ROCURONIUM 10 MG/ML (5 ML VIAL) IV ONE (11:12)
[2025-01-27] MEDS ORDERED: PHENYLEPHRINE 10 MG/ML VIAL ONE (11:12)
[2025-01-27] MEDS ORDERED: HEPARIN SODIUM,PORCINE 10,000 UNIT/ML 1 ML VIAL ONE (11:12)
[2025-01-27] MEDS ORDERED: PROPOFOL 10 MG/ML 20 ML VIAL IV ONE (11:12)
[2025-01-27] MEDS ORDERED: fentaNYL (PF) 50 MCG/ML 2 ML AMP ONE (11:12)
[2025-01-27] MEDS: IV FLUID CONTINUATION 1,000 ML IV ONE (11:13)
[2025-01-27] MEDS: HEPARIN SOD,PORK IN 0.45% NACL 25,000 UNIT in 0.45% NACL 1 250ML.BAG IV ONE (11:28)
--- NOTE | 2025-01-27 11:28 | P.HPCAR ---
History of Present Illness This is Dr. Galloway dictating an H/P on this patient The patient was interviewed and examined IMPRESSION / ASSESSMENT: Persistent atrial fibrillation failed amiodarone, symptomatic History of atrial flutter ablation in the past Preserved LV systolic function on 2D echo Morbid obesity BMI 42 PLAN: Continue Xarelto uninterrupted Heparin dose calculated Proceed with A-fib ablation HPI Patient complains of tiredness and fatigue and shortness of breath on exertion No syncope No angina No cough expectoration of phlegm ROS: No fever chills or rigors, no cough, phlegm or expectoration, no nausea, vomiting or diarrhea, no hematuria, dysuria, no musculoskeletal complaints, no strokes or seizures, no skin lesions. EXAMINATION: Afebrile, pulse rate in the 60s and regular Blood pressure 159/88 mmHg Heart sounds irregular no murmurs no gallop or rub Clear lungs no rhonchi no crackles No JVD Central obesity No lower extremity edema REVIEW OF LABS, ECG & MEDICAL DATA TSH 2.0 Medications include amlodipine Xarelto 20 mg nightly metoprolol tartrate, atorvastatin and amiodarone 200 mg at bedtime Physical Exam Vitals: Vital Signs Temp Pulse Resp BP BP Pulse Ox 01/27/25 09:55 98.1 F 60 16 159/88 147/79 98 Intake and Output 01/26/25 01/27/25 01/27/25 22:59 06:59 14:59 Other: Weight 117.8 kg Past Medical History Past Medical History: Atrial Fibrillation, Atrial Flutter, GERD/Reflux, Hyperlipidemia, Hypertension, Osteoarthritis (OA), Pneumonia, Prostate Disorder, Skin Disorder, Sleep Apnea/CPAP/BIPAP Additional Past Medical History / Comment(s): no cpap used since wt loss, rosacea and dry skin, low vit d, enlarged prostate, rt hip arthritis, fatty deposit back of head, seasonal allergies, bronchits. past gout. SEE DR GALLOWAY'S HISTORY AND PHYSICAL FOR CARDIAC HISTORY . Occasional acid reflux. History of Any Multi-Drug Resistant Organisms: None Reported Past Surgical History: Cardiac Ablation Additional Past Surgical History / Comment(s): EP study,pilonidal cyst, colonoscopy/polypectomy-benign,cardioversion Past Anesthesia/Blood Transfusion Reactions: No Reported Reaction Additional Past Anesthesia/Blood Transfusion Reaction / Comment(s): no hx blood transfusion to date. Smoking Status: Current some day smoker - Past Family History Mother Family Medical History: Cancer Additional Family Medical History / Comment(s): from breast cancer Father Family Medical History: Coronary Artery Disease (CAD), Myocardial Infarction ([place]) Additional Family Medical History / Comment(s): pacemaker, smoked Physical Examination Vital Signs Temp Pulse Resp BP BP Pulse Ox 01/27/25 09:55 98.1 F 60 16 159/88 147/79 98 Intake and Output 01/26/25 01/27/25 01/27/25 22:59 06:59 14:59 Other: Weight 117.8 kg Results Current Medications Generic Name Dose Route Start Last Admin Trade Name Freq PRN Reason Stop Dose Admin Sodium Chloride 1,000 mls @ 20 mls/hr 01/27/25 06:07 01/27/25 10:02 Saline 0.9% IV 02/26/25 06:06 20 mls/hr .Q24H ADITYA Administration Lactated Ringer's 1,000 mls @ 20 mls/hr 01/27/25 06:07 Lactated Ringers IV 02/26/25 06:06 .Q24H ADITYA Intake and Output 01/26/25 01/27/25 01/27/25 22:59 06:59 14:59 Other: Weight 117.8 kg Patient Weight 01/28/25 06:59 Weight 117.8 kg
[2025-01-27] MEDS: LIDOCAINE 1% INJ 10MG/ML (20 ML MDV) SQ ONE (12:02)
[2025-01-27] MEDS: IOPAMIDOL-370 100ML BTL INJ ONE (13:45)
[2025-01-27] MEDS ORDERED: ACETAMINOPHEN TAB 325 MG TAB PO PRN (14:15)
--- NOTE | 2025-01-27 14:26 | P.EPPROC ---
- EP Procedure Note Electrophysiology Procedure Note: PROCEDURE A. fib ablation with PVI, left atrial septal ablation, left atrial roof ablation using cryoablation DIAGNOSIS Persistent atrial fibrillation, symptomatic, refractory to therapy, failed amiodarone RESULT No left atrial appendage mass seen on intracardiac echo, mildly thickened p ericardium Successful A. fib ablation/pulmonary vein isolation of all veins using cryo- ablation Complete entrance block in all 4 veins confirmed No evidence for phrenic nerve injury Left atrial roof ablation Left atrial septal ablation Esophageal deflection YES Electrical cardioversion with a synchronized shock across the chest YES PROCEDURE DETAILS Written informed consent prior to procedure. Patient brought to the EP lab. General anesthesia given. Heparin administered. A city maintained above 300 seconds Both groins prepped and draped per protocol and venous sheaths placed. Esophagu s intubated, circa catheter for temperature monitoring an endoscope for possible esophageal deflection. Phrenic nerve monitoring performed. Esophageal temperature monitoring performed. Esophageal deflection performed if circa catheter overlapping with the balloon or circa temperature less than 27.5°C Intracardiac echocardiography performed. Pericardium evaluated. Left atrial appendage evaluated. Left atrium evaluated along with pulmonary veins Transseptal catheterization performed under fluoroscopic guidance and intracardiac echo guidance Cryoablation sheath exchanged, balloon catheter along with achieve catheter placed in the left atrium. Pulmonary veins isolated in the following sequence: Left superior pulmonary vein followed by left inferior pulmonary vein, followed by right inferior pulmonary vein and lastly right superior pulmonary vein. Phrenic nerve stimulation along with capture thresholds within the SVC and right superior pulmonary vein to identify the phrenic nerve proximity to the cryo- balloon. Pulmonary veins isolated and confirmed with entrance and exit block. Phrenic nerve integrity confirmed at the end of the procedure Ablation of the left atrial roof performed with sequential lesions from the left superior to the right superior pulmonary veins. Absence of the electrograms confirmed Ablation of the left atrial septum performed with cannulation of the superior branch of the right inferior and the inferior branch of the right superior vein to achieve ablation of the posterior septum of the left atrium. Absence of electrograms confirmed Electrical cardioversion performed for persistence of atrial fibrillation despite successful ablation. Diagnostic catheters for the high right atrium, His bundle, coronary sinus placed. LA and RA pressures recorded LA pressure: 06/11/13 Diagnostic EP study with coronary sinus pacing and recording Baseline measurements: Sinus cycle length 1113 ms, WV interval 135 ms, QRS 91 and QT 451 ms AH 99 and HV 58 ms Venous sheaths were removed and hemostasis assured with a closure device. Patient extubated and transferred to recovery PROCEDURES PERFORMED Diagnostic EP study CS pacing and recording Left and right transseptal catheterization Catheter the mapping of the tachycardia Intracardiac echocardiography Pulmonary vein isolation with transseptal and comprehensive EPS, [id number] Left atrial roof line, +[id number] Linear ablation, left atrium, +[id number] Electrical cardioversion with a synchronized shock across the chest [id number]
--- NOTE | 2025-01-27 14:33 | P.PRLE ---
RE: Lobo Poe Dear Carmelo Lobo Poe underwent successful ablation for persistent atrial fibrillation with PVI, left atrial roof ablation and left atrial septal ablation. I have reduced the dose of amiodarone to 100 mg p.o. daily He will continue anticoagulation, but for the next 2 months he has been instructed to continue it uninterrupted, to avoid risk of CVA Thank you for entrusting me with the care of the patient Warm regards Sincerely Justyn Galloway
[2025-01-27] MEDS: LACTATED RINGERS 1,000 ML IV SCH (15:49)
[2025-01-27 17:05] LABS: Basophils # (A) 0.04 10*3/uL (0.00-0.10); Basophils % (A) 0.3 %; Eosinophils # (A) 0.06 10*3/uL (0.04-0.35); Eosinophils % (A) 0.5 %; HCT 47.0 % (39.6-50.0); HGB 16.0 g/dL (13.0-17.0); Lymphocytes # (A) 1.20 10*3/uL (0.90-5.00); Lymphocytes % (A) 10.2 %; MCH 32.5 pg (27.0-32.0); MCHC 34.0 g/dL (32.0-37.0); MCV 95.5 fL (80.0-97.0); Monocytes # (A) 0.62 10*3/uL (0.20-1.00); Monocytes % (A) 5.3 %; Neutrophils # (A) 9.79 10*3/uL (1.80-7.70); Neutrophils % (A) 83.4 %; Platelet Count 212 10*3/uL (140-440); RBC 4.92 10*6/uL (4.40-5.60); RDW 13.2 % (11.5-14.5); WBC 11.75 10*3/uL (4.50-10.00)
[2025-01-27 18:24] LABS: African American GFR (CKD) 83 (>60 ml/min/1.73 sqM); Anion Gap 9 mmol/L; Blood Urea Nitrogen 23 mg/dL (9-20); Calcium 9.7 mg/dL (8.4-10.2); Carbon Dioxide 29 mmol/L (22-30); Chloride 102 mmol/L (98-107); Glucose 131 mg/dL (74-99); Non-African American GFR(CKD) 72 (>60 ml/min/1.73 sqM); Potassium 4.4 mmol/L (3.5-5.1); Sodium 140 mmol/L (137-145)
[2025-01-27] MEDS: amLODIPine 5 MG TAB PO SCH (21:01)
[2025-01-27] MEDS: AMIODARONE 100 MG TAB PO SCH (21:01)
[2025-01-27] MEDS: RIVAROXABAN 20 MG TAB PO SCH (21:01)
[2025-01-27] MEDS: ATORVASTATIN 10 MG TAB PO SCH (21:01)
[2025-01-28 07:19] VITALS: BP 124/80; PULSE 82; RESP 18; TEMP 98.4
--- NOTE | 2025-01-28 07:54 | P.DS ---
Providers Attending physician: Justyn Galloway Primary care physician: Shakeel Leonkeron [facility] Course: Patient is doing well. No chest discomfort no sore throat No dizziness lightheadedness Groins have healed well no hematoma no swelling Blood pressure 124/80 mmHg pulse rate in the 80s normal respirations afebrile Impression Persistent atrial fibrillation that failed amiodarone Status post A-fib ablation with PVI left atrial septal ablation left atrial roof ablation This was followed by electrical cardioversion He is doing well postoperatively and groins have healed well First-degree AV block Plan Reduce amiodarone to 100 mg p.o. daily Reduce the dose of metoprolol to 12.5 mg twice daily Uninterrupted Xarelto for the next 2 months, lifelong Xarelto Discharge home today Incentive spirometry Plan - Discharge Summary Discharge Rx Participant: No New Discharge Prescriptions: New RX: Amiodarone [Cordarone] 100 mg PO DAILY #90 tab Discontinued Amiodarone HCl [Pacerone] 200 mg PO HS No Action RX: Multivitamins, Thera [Multivitamin (formulary)] 1 tab PO DAILY RX: amLODIPine [Norvasc] 5 mg PO HS RX: Atorvastatin [Lipitor] 10 mg PO HS RX: Rivaroxaban [Xarelto] 20 mg PO HS RX: Metoprolol Tartrate [Lopressor] 25 mg PO BID RX: Cholecalciferol [Vitamin D3 (25 Mcg = 1000 Iu)] 50 mcg PO DAILY RX: Hydrocortisone Cream [Hydrocortisone 2.5% Cream] 1 applic TOPICAL DAILY Discharge Medication List RX: Multivitamins, Thera [Multivitamin (formulary)] 1 tab PO DAILY 11/26/19 [History] RX: Atorvastatin [Lipitor] 10 mg PO HS 11/27/19 [History] RX: Metoprolol Tartrate [Lopressor] 25 mg PO BID 11/27/19 [History] RX: Rivaroxaban [Xarelto] 20 mg PO HS 11/27/19 [History] RX: amLODIPine [Norvasc] 5 mg PO HS 11/27/19 [History] RX: Cholecalciferol [Vitamin D3 (25 Mcg = 1000 Iu)] 50 mcg PO DAILY 10/13/20 [History] RX: Hydrocortisone Cream [Hydrocortisone 2.5% Cream] 1 applic TOPICAL DAILY 10/14/20 [History] RX: Amiodarone [Cordarone] 100 mg PO DAILY #90 tab 01/27/25 [Rx] Follow up Appointment(s)/Referral(s): Iesha Oshea MD [STAFF PHYSICIAN] - 1 Week Activity/Diet/Wound Care/Special Instructions: Post EP study - Ablation instructions 1. Keep access sites dry for 2 days. 2. No heavy lifting or straining for 2 days. 3. Avoid bending the hips repeatedly for 2 days. 4. You may go up and down stairs slowly 5. If you have had an ablation for atrial fibrillation or atrial flutter and are on a blood thinner, do not stop the blood thinner even temporarily for 3 months post ablation Call if the following is noted 1. Bleeding, increasing swelling or pain at the access sites. 2. Increasing chest discomfort, especially upon taking a deep breath. 3. Increasing shortness of breath, at rest or with exertion. 4. Undue cough / phlegm 5. Difficulty or pain while swallowing. 6. Pain or change in color in the extremities. 7. Fever, chills, rigors. 8. Increasing headache or neurologic symptoms. 9. Dizziness, fainting, palpitations For patients who have undergone an A-fib ablation /atrial flutter ablation Strict instruction; do NOT stop anticoagulation (Eliquis/Xarelto/Pradaxa) for the next 2 months temporarily, for any elective, nonurgent surgery. This increases the risk of stroke, post A-fib ablation Discharge Disposition: HOME SELF-CARE
== END 2025-01-28 09:45 | disposition home or self-care (01) ==
LOC: CATHEP 09:09 → 6NMEDSUR 14:00 → CATHEP 01-28 09:45
PROVIDERS: ATTEND Internal Medicine Clinical Cardiac Electrophysiology
DX: I48.19 Other persistent atrial fibrillation (principal); K21.9 Gastro-esophageal reflux disease without esophagitis; I10 Essential (primary) hypertension; E78.5 Hyperlipidemia, unspecified; F17.200 Nicotine dependence, unspecified, uncomplicated; E66.01 Morbid (severe) obesity due to excess calories; M19.90 Unspecified osteoarthritis, unspecified site; F32.A Depression, unspecified; G47.33 Obstructive sleep apnea (adult) (pediatric); J30.1 Allergic rhinitis due to pollen; L23.1 Allergic contact dermatitis due to adhesives; Z68.41 Body mass index [BMI] 40.0-44.9, adult; Z87.01 Personal history of pneumonia (recurrent); Z80.3 Family history of malignant neoplasm of breast; Z82.49 Family history of ischemic heart disease and other diseases of the circulatory system; Z79.01 Long term (current) use of anticoagulants; Z79.899 Other long term (current) drug therapy
CPT/HCPCS: 92960; 93656; 93657; 86900; 86901; 80048; 84443; 85025; 86850; C1894; C1769; C1760 ×3; C1730 ×2; C1759; C1733; C1766; J2250; J0330; J1644 ×2; J2003; J3010; J2704; Q9967; J2371